=== PATIENT | female | born 1990 | race Hispanic/Latino ===

== ENCOUNTER 2022-11-14 23:41 | Emergency (ER) | payer BC ==
[~2022-11-14] VITALS: Ht 149.9 cm; Wt 56.7 kg
[2022-11-15 00:03] VITALS: O2SAT 98
[2022-11-15] MEDS ORDERED: ACETAMINOPHEN 325 MG TAB PO ONE (00:15)
[2022-11-15] MEDS ORDERED: AMOXICILLIN875 MG PO (00:21)
== END 2022-11-15 00:45 | disposition home or self-care (01) ==
LOC: FSED 11-15 00:03
DX: R30.0 Dysuria (principal); B34.9 Viral infection, unspecified; R51.9 Headache, unspecified
CPT/HCPCS: 81003; 83518; 87400; 99283